=== PATIENT | male | born 1995 | race Caucasian/White ===

== ENCOUNTER 2021-04-18 01:24 | Emergency (ER) | payer OTHER ==
[~2021-04-18] VITALS: Ht 190.5 cm; Wt 96.4 kg
[2021-04-18 02:01] VITALS: BP_DIAS 63
--- OUTSIDE RECORDS SUMMARY | 2021-04-18 02:55 | CCD ---
Author Author [facility] Organization [facility] Address Unknown Phone Unavailable Care Team Providers Care Pension Adviser Name Role Phone NO, PCP Unavailable Unavailable CHANLIECCO, C UTE SLOAN Unavailable Unavailable CHANLIECCO, C UTE SLOAN Unavailable Unavailable CHANLIECCO, C UTE MD Unavailable Unavailable CHANLIECCO, C UTE MD Unavailable Unavailable CHANLIECCO, C UTE MD Unavailable Unavailable CHANLIECCO, C UTE MD Unavailable Unavailable CHANLIECCO, C UTE MD Unavailable Unavailable CHANLIECCO, C UTE MD Unavailable Unavailable CHANLIECCO, C UTE MD Unavailable Unavailable CHANLIECCO, C UTE MD Unavailable Unavailable CHANLIECCO, C UTE MD Unavailable Unavailable Re-disclosure Warning The records that you are about to access may contain information from federally-assisted alcohol or drug abuse programs. If such information is present, then the following federally mandated warning applies: This information has been disclosed to you from records protected by federal confidentiality rules (42 CFR part 2). The federal rules prohibit you from making any further disclosure of this information unless further disclosure is expressly permitted by the written consent of the person to whom it pertains or as otherwise permitted by 42 CFR part 2. A general authorization for the release of medical or other information is NOT sufficient for this purpose. The Federal rules restrict any use of the information to criminally investigate or prosecute any alcohol or drug abuse patient.The records that you are about to access may contain highly sensitive health information, the redisclosure of which is protected by Article 27-F of the [facility] Public Health law. If you continue you may have access to information: Regarding HIV / AIDS; Provided by facilities licensed or operated by the [facility] Office of Mental Health; or Provided by the [facility] Office for People With Developmental Disabilities. If such information is present, then the following [facility] mandated warning applies: This information has been disclosed to you from confidential records which are protected by state law. State law prohibits you from making any further disclosure of this information without the specific written consent of the person to whom it pertains, or as otherwise permitted by law. Any unauthorized further disclosure in violation of state law may result in a fine or intermediate sentence or both. A general authorization for the release of medical or other information is NOT sufficient authorization for further disc losure. Encounters Encounter Providers Location Date Indications Data Source(s ) Emergency Attender: UTE HORTA MDConsultant: PCP NO 02/18/2021 07:31:00 PM EDT - 02/18/2021 08:00:[address] [facility] Patient discharged. Immunizations Vaccine Date Status Description Data Source(s) COVID-19 VACCINE Pfizer 07/20/2020 12:00:00 AM EST completed [facility] Vaccine Series Complete: NOThis Data was Submitted to [facility] Via [employer]. Medications No Information Insurance Providers Payer name Policy type / Coverage type Policy ID Covered alliance party ID Covered alliance party's relationship to strauss Policy Strauss Plan Information [facility] [id number] SP [id number] [facility] [id number] 18 [id number] Problems, Conditions, and Diagnoses Code Display Name Description Problem Type Effective Dates Data Source(s) B43334 Other athletic field as the place of occ urrence of the external cause Other athletic field as the place of occurrence of the external cause Diagnosis 02/18/2021 07:31:[address] [facility] [id number] Fall on same level from slip ping, tripping and stumbling without subsequent striking against object, initial encounter Fall on same level from slipping, tripping and stumbling without subsequent striking against object, initial encounter Diagnosis 02/18/2021 07:31:[address] [facility] [id number] Nicotine dependence, other tobacco produ ct, uncomplicated Nicotine dependence, other tobacco product, uncomplicated Diagnosis 02/18 07:31:[address] [facility] [id number] Cellulitis of left lower limb Cellulitis of left lower limb Diagnosis 02/18/2021 07:31:[address] [facility] [id number] Abrasion, left ankle, initial encounter Abrasion, left ankle, initial encounter Diagnosis 02/18/2021 07:31:[address] [facility] [id number] Abrasion, left lower leg, initial encoun ter Abrasion, left lower leg, initial encounter Diagnosis 02/18/2021 07:31:[address] [facility] [id number] Unspecified injury of left lower leg, in itial encounter Unspecified injury of left lower leg, initial encounter Diagnosis 02/18/2021 07:31:[address] [facility] Surgeries/Procedures No Information Results ID Date Data Source [id number] 02/18/2021 07:31:[address] [facility] [address] [facility] Emergency Department [address] [place] [address] Phone #: ext- [phone] 02/18/2021 19:19 Patient: SERGIO OWENS Sex: M : 1995 Age: 25yWeight: 97.5 kgHeight/Length: 75 in.BMI: 26.9ALLERGIES: No Known Drug AllergyThe patient's Home Medications are listed below:NONE.The source(s) of the original Home Medication information:patientThe following Medications were given to the patient in the Emergency Department:None.The following Medications were prescribed to the patient:None. Name Value Range Interpretation Code Description Data Rosie rce(s) Supporting Document(s) ID Date Data Source [id number] 02/18/2021 07:31:[address] [facility] [address] [facility] Emergency Department [address] [place] [address] Phone #: ext- [phone] 10/2020 19:19 Patient: SERGIO OWENS Sex: M : 1995 Age: 25yWeight: 97.5 kgHeight/Length: 75 inBMI: 26.9ALLERGIES: No Known Drug AllergyDate/Time Medication Administered Medication Ordered Name Value Range Interpretation Code Description Data Rosie rce(s) Supporting Document(s) ID Date Data Source [id number] 02/18/2021 07:31:[address] [facility] [address] [facility] Emergency Department [address] [place] [address] Phone #: ext- [phone] 02/18/2021 19:19 Patient: SERGIO OWENS Sex: Karrie : 1995 Age: 25yMultiple superficial abrasions to the left lower leg and left ankle. Delayed evaluation. Cellulitis present. Noforeign body present.INSTRUCTIONS(Scrub in the shower twice daily and apply Bacitracin twice daily after showering.).Warnings: INFECTION: Watch for signs of infection (increasing heat and redness, pus-like drainage,swelling, or increased pain). Return or see your doctor if these signs occur.GENERAL WARNINGS: Return or contact your physician immediately if your condition worsens orchanges unexpectedly, if not improving as expected, or if other problems arise. Specifically return if pain orfever worsens.Your Current Medications: .No home medication.Follow-up:Follow up with your doctor Friday for wound check. Reason for referral: evaluation and treatment.Summary of care provided to patient.Understanding of the discharge instructions verbalized by patient. ADDITIONAL INFORMATIONAbrasionsAbrasions are skin scrapes. Their treatment depends on how large and deep the abrasion is.Home careYou may be prescribed an antibiotic cream or ointment to apply to the wound. This helps preventinfection. Follow instructions when using this medicine.General care To care for the abrasion, do the following each day for as long as directed by your healthcare provider: [address] [facility] Emergency Department [address] [place] [address] Phone #: ext- [phone] 02/18/2021 19:19 Patient: SERGIO OWENS Sex: M : 1995 Age: 25y o If you were given a bandage, change it once a day. If your bandage sticks to the wound, soak it in warm water until it loosens. o Wash the area with soap and warm water. You may do this in a sink or under a tub faucet or shower. Rinse off the soap. Then pat the area dry with a clean towel. o If antibiotic ointment or cream was prescribed, reapply it to the wound as directed. Cover the wound with a fresh nonstick bandage. If the b andage becomes wet or dirty, change it as soon as possible. o Some antibiotic ointments or cream can cause an allergic reaction or dermatitis. This may cause redness, itching and or hives. If this occurs, stop using the ointment right away and wash off any remaining ointment. You may need to take some allergy medicine to relieve symptoms. You may use acetaminophen or ibuprofen to control pain unless another pain medicine was prescribed. Talk with your healthcare provider before using these medicines if you have chronic liver or kidney disease or ever had a stomach ulcer or GI (gastrointestinal) bleeding. Don't use ibuprofen in children younger than 6 months old. Most skin wounds heal within 10 days. But an infection may occur even with treatment. So it's important to watch the wound for signs of infection as listed below.Follow-up careFollow up with your healthcare provider, or as advised.When to get medical adviceCall your healthcare provider right away if any of these occur: Fever of 100.4F (38C) or higher, or as directed by your healthcare provider Increasing pain, redness, swelling, or drainage from the wound Bleeding from the wound that does not stop after a few minutes of steady, firm pressure Decreased ability to move any body part near the wound [employer]. [address] [place] [address]. All rights reserved. This information is not intended as asubstitute for professional medical care. Always follow your healthcare professional's instructions.Wound Care [address] [facility] Emergency Department [address] [place] [address] Phone #: ext- [phone] 02/18/2021 19:19 Patient: SERGIO OWENS Sex: M : 1995 Age: 25yYou have a break in the skin. This wound may be because of an injury. Or it may be the result ofsurgery. Closing the wound helps stop bleeding, protects the wound from infection, and speedshealing. The type of closure that is used depends on the size and location of the wound. Choicesinclude stitches (sutures), strips of surgical tape, skin glue, or roberta.Home careYour healthcare provider may prescribe medicines for pain. Or he or she may suggestan dntf-exj-xjeobjl (OTC) pain reliever, such as ibuprofen. If you have chronic kidney disease, talkwith your provider before taking any OTC medicines. Also talk with your provider if you've had astomach ulcer or gastrointestinal bleeding. In certain cases, antibiotics may be prescribed to helpprevent infection. If antibiotics are prescribed, take them exactly as directed for as long as directed.Don't stop taking your antibiotics until they are all gone, even if you feel better.General care Follow the healthcare provider's instructions on how to care for the wound. Wash your hands with soap and warm water before and after caring for the wound. This helps prevent infection. If a bandage was applied, change it once a day or as directed. If at any time the bandage becomes wet or dirty, replace it with a new one. Unless told otherwise, avoid soaking the wound in water. Take showers or sponge baths instead of tub baths. Don't scrub or pick at the wound. Don't go swimming. If you have a bandage and it gets wet, use a clean cloth to gently pat the wound dry. Then replace the bandage with a dry one. [address] [facility] Emergency Department [address] [place] [address] Phone #: ext- [phone] 02/18/2021 19:19 Patient: SERGIO OWENS Sex: M : 1995 Age: 25y Don't scratch, rub, or pick at the area. Watch for the signs of infection listed below. Any wound can get infected, even if you are taking antibiotics. Seek care right away if you see any possible signs of infection.Care for specific closures Stitches. You may want to clean the wound daily after the first 2 to 3 days. To do this, remove the bandage and gently wash the area with soap and warm water. After cleaning, apply a thin layer of antibiotic ointment if recommended. Then apply a new bandage. Stitches es on the outside of the skin usually need to be removed by your healthcare provider. Surgical tape. Keep the area dry. If it gets wet, blot it dry with a towel. Surgical tape closures usually fall off within 7 to 10 days. If they have not fallen off after 10 days, you can remove them yourself. To remove the tape, use mineral oil or petroleum jelly on a cotton ball to gently rub the adhesive. Skin glue. You may shower or bathe as usual, but don't use soaps, lotions, or ointments on the wound area. Don't scrub the wound. After bathing, pat the wound dry with a soft towel. Don't apply liquids like peroxide, ointments, or creams to the wound while the strips or film is in place. Don't scratch, rub, or pick at the strips or film. Don't put tape directly over the strips or film. Skin adhesive film will fall off naturally in 5 to 10 days. If it does not peel off in 10 days, gently rub petroleum jelly or an ointment onto the film. Roberta. Take showers or sponge baths. Don't take tub baths. Don't use l otions on the wound area. The area may be cleaned with soap and water 2 to 3 days after the wound was stapled. Don't scrub the wound. Pat it dry with a clean soft cloth or towel. You can use antibiotic ointment if your provider tells you to. Roberta will need to be removed by your healthcare provider in 10 to 14 days.Follow-up careFollow up with your healthcare provider, or as directed. If you have stitches or roberta, return for theirremoval as directed.When to seek medical adviceCall your healthcare provider right away if you have signs of infection: Fever of 100.4F (38C) or higher, or as directed by your healthcare provider Increasing pain in the wound Increasing redness or swelling Pus or bad-smelling drainage from the wound [address] [facility] Emergency Department [address] [place] [address] Phone #: ext- [phone] 02/18/2021 19:19 Patient: SERGIO OWENS Sex: M : 1995 Age: 25yAlso call your provider right away if any of these occur: Wound bleeds more than a small amount or won't stop bleeding Wound edges come apart Numbness or weakness in the wound area that doesn't go away [phone] [employer]. [address] [place] [address]. All rights reserved. This information is not intended as asubstitute for professional medical care. Always follow your healthcare professional's instructions. You have been given the following additional information: Abrasions Wound Care(Electronically signed by GOOD Antony 02/18/2021 21:47) Name Value Range Interpretation Code Description Data Rosie rce(s) Supporting Document(s) ID Date Data Source [id number] 02/18/2021 07:31:[address] [facility] 1 Clinical Report - Nurses [facility] Emergency Department [address] [place] [address] Phone #: ext- [phone] 02/18/2021 19:19 Patient: SERGIO OWENS Sex: M : 1995 Age: 25yTRIAGEArrived by private vehicle. Historian: patient. Unaccompanied.Triage time: 19:21 02/18/2021. Acuity: LEVEL 3.Chief Complaint: LEFT LOWER EXTREMITY PAIN and SWELLING.Alert. No acute distress.Injury occurred. Onset. (6 days ago). ( Pt was playing sports for the [employer] and slid on his leg onFri/ this week. He has a large abrasion to his left lower leg. He was put on Doxycycline on Fri.It has since become worse.). He has had trouble walking.SEPSIS SCREEN: SIRS SCREEN NEGATIVE. SEPSIS SCREEN NEGATIVE. No suspected or confirmedsigns of infection present.ZAIN COMA SCORE: 15- eyes open- spontaneous (4); best verbal response- oriented (5); bestmotor response- obeys commands (6). --19:02/18/21 Pam Lopez R.N.19:02/18/21. BP: 146/84. MAP: 104. HR: 74. RR: 18. O2 saturation: 99% on room air. Temp: 98.3 F(temporal). Pain level now: 5/10. --19:25 02/18/21 Pam Lopez R.N.Weight: 97.5 kg stated. Height/Length: 75 inches Per Patient. BMI: 26.9. --19:02/18/21 Pam Lopez R.N.MedicationsNone. --19:02/18/21 Pam Lopez R.N.AllergiesNo Known Drug Allergy. --19:02/18/21 Pam Lopez R.N.PROBLEMS:no known problems.Medication/allergy information source: the patient. --19:02/18/21 Pam Lopez R.N.ADDITIONAL SURGERIES:Maycoldayday Segovia. --19:02/18/21 Pam Lopez R.N.HistoryPAST MEDICAL HX: Tetanus status: up-to-date.SOCIAL HX: Smoker- current status unknown (Vape). No alcohol use or drug use. He was offered HIV 2 Clinical Report - Nurses [facility] Emergency Department [address] [place] [address] Phone #: ext- [phone] 02/18/2021 19:19 Patient: SERGIO OWENS Sex: M : 1995 Age: 25y testing but declined. Patient education was provided. He was offered hepatitis C testing but declined. Patient education was provided. He has not traveled outside the [place] Infectious disease exposure: No infectious disease exposure. (COVID screen negative, pt was vaccinated for COVID). Patient is not a known carrier of tuberculosis, hepatitis, HIV, MRSA or VRE. Patient is not a known carrier of CRE. SELF HARM ASSESSMENT: Self harm assessment was performed. The patient answered "no" to the question(s) "Do you have thoughts of harming or killing yourself?", "Do you have a plan for harming or killing yourself?" and "Have you recently had thoughts about harming or killing others?". ABUSE ASSESSMENT: Abuse assessment. The patient had positive responses to the question(s) "Do you feel safe in your home?" (yes). Abuse denied. No suspicion of abuse. No report of abuse. NUTRITIONAL RISK ASSESSMENT: The nutritional risk assessment revealed no deficiencies. FUNCTIONAL ASSESSMENT: Functional assessment: no impairments noted. LEARNING NEEDS ASSESSMENT: The learning needs assessment revealed no barriers. FALL RISK ASSESSMENT: Fall risk assessment completed. No risk factors identified. SKIN INTEGRITY ASSESSMENT: Skin integrity risk assessment completed. No skin integrity risk identified. --02/18/21 Pam Lopez R.N. Interventions Identification band on patient. --:02/18/21 Pam Lopez R.N.PHYSICAL ASSESSMENTAmbulatory to room.GENERAL / NEURO / PSYCH: Oriented X 4. Alert. Appears in no acute distress.EXTREMITIES: Extremity pulses are within normal limits. Left leg: large abrasion of the anterior aspect ofmid leg. Left ankle: small abrasion.SKIN: Skin is warm and dry. --19:36 02/18/21 Roslyn Perdue R.N.NURSING PROGRESS NOTESPatient gowned. Reassurance given. Three patient identifiers checked. Call light placed in reach. Siderails up x 2. Bed placed in lowest position. Brakes of bed on. Patient ready for evaluation- PA notified.--:02/18/21 Pam Lopez R.N.DISPOSITION / DISCHARGE Condition at departure: improved and stable. No learning barriers present. Discharge inst ructions provided and reviewed with the patient. Reviewed wound care instructions. Patient verbalized understanding. Written instructions provided in Comoran. The patient was discharged by the physician commercial assistant. He was discharged home and accompanied by spouse. He left ambulatory and via private 3 Clinical Report - Nurses [facility] Emergency Department [address] [place] [address] Phone #: ext- [phone] 02/18/2021 19:19 Patient: SERGIO OWENS Sex: M : 1995 Age: 25y vehicle. Spouse driving. --19:59 02/18/21 Roslyn Perdue R.N. 19:58 02/18/21. BP: 118/72. MAP: 87. HR: 65. RR: 16. O2 saturation: 98%. Temp: 98.3 F. Pain level now: 10/23. --19:59 02/18/21 Roslyn Perdue R.N.Locked/Released at 02/18/2021 20:00 by Roslyn Perdue R.N. Name Value Range Interpretation Code Description Data Rosie rce(s) Supporting Document(s) ID Date Data Source [id number] 02/18/2021 07:31:[address] [facility] 1 Clinical Report - Physicians/Mid Levels [facility] Emergency Department [address] [place] [address] Phone #: ext- [phone] 02/18/2021 19:19 Patient: SERGIO OWENS Sex: M : 1995 Age: 25y Time Seen: 19:25 02/18/2021. Arrived- By private vehicle.HISTORY OF PRESENT ILLNESS Chief Complaint: Injury to left leg. The injury happened 6 days ago. Occurred at an athletic field. ( Pt was playing sports for the [employer] and slid on his leg on Fri/ this week. He has a large abrasion to his left lower leg. He was put on Doxycycline on Fri. It has since become worse.). He has had trouble walking.). Fell: Patient is experiencing severe pain.REVIEW OF SYSTEMSThe patient complains of pain on weight bearing. No swelling, tingling, weakness, numbness or suspectedforeign body. No skin laceration.PAST HISTORYTetanus immunization status is up-to-date. Problems: no known problems. Additional Surgeries: Maycol Segovia. Medications: None. Allergies: No Known Drug Allergy.SOCIAL HISTORYSmoker- current status unknown (Vape). No alcohol use or drug use.PHYSICAL EXAMVital Signs: Have been reviewed as abnormal. Oxygen saturation normal.Appearance: Alert. Oriented X3. No acute distress.Head: Head atraumatic.Eyes: Pupils equal, round and reactive to light. Eyes normal inspection.ENT: Ears normal. Nose normal. Pharynx normal.Neck: Normal inspection. 2 Clinical Report - Physicians/Mid Levels [facility] Emergency Department [address] [place] [address] Phone #: ext- [phone] 02/18/2021 19:19 Patient: SERGIO OWENS Sex: M : 1995 Age: 25y CVS: Normal heart rate and rhythm. Respiratory: No respiratory distress. Abdomen: No visible injury. Back: Normal inspection. Skin: Skin warm and dry. Normal skin color. Normal skin turgor. Extremities: Swelling, warmth, tenderness, erythema and serous drainage present in the left leg and left ankle. Left leg: mild erythema and swelling, moderate tenderness and large abrasion with controlled bleeding located in the anterior and lateral aspect of mid and lower leg. Limited weight bearing secondary to pain. Neurovascular intact distally. Left ankle: mild erythema, tenderness and swelling and small abrasion with controlled bleeding localized to the lateral malleolus. Limited ROM secondary to pain. Neurovascular intact distally. No ligamentous laxity present. No joint effusion. Extremities otherwise negative. Neuro, Vascular and Tendons: Vascular status intact. Sensation intact. Motor intact. Tendon function intact. Gait: Limping gait. Neuro: Oriented X 3.PROGRESS AND PROCEDURESCourse of Care: 19:51 Feb 18 2021. Evaluation after observation. (Discussed exam findings, reviewedpic from earlier in the week, exam c/w eschar normal healing and approp riate abx tx, wound carediscussed and pt is agreeable with dx and tx plan.). Patient counseled in person regarding the patient's stable condition, diagnosis and need for follow-up. Patient agrees with plan of care. :Feb 18 2021. Disposition: Discharged home in good and improved condition (:52 Feb 18 2021).CLINICAL IMPRESSION Multiple superficial abrasions to the left lower leg and left ankle. Delayed evaluation. Cellulitis present. No foreign body present.INSTRUCTIONS (Scrub in the shower twice daily and apply Bacitracin twice daily after showering.). Warnings: INFECTION: Watch for signs of infection (increasing heat and redness, pus-like drainage, swelling, or increased pain). Return or see your doctor if these signs occur. GENERAL WARNINGS: Return or contact your physician immediately if your condition worsens or changes unexpectedly, if not improving as expected, or if other problems arise. Specifically return if pain or fever worsens. 3 Clinical Report - Physicians/Mid Levels [facility] Emergency Department [address] [place] [address] Phone #: ext- [phone] 02/18/2021 19:19 Patient: SERGIO OWENS Sex: M : 1995 Age: 25y Your Current Medications: . No home medication. Follow-up: Follow up with your doctor Friday for wound check. Reason for referral: evaluation and treatment. Summary of care provided to patient. Understanding of the discharge instructions verbalized by patient.(Electronically signed by GOOD Antony 02/18/2021 21:47) Name Value Range Interpretation Code Description Data Rosie rce(s) Supporting Document(s) Procedure Social History No Information
[2021-04-18 05:11] VITALS: BP_SYST 112
== END 2021-04-18 05:12 | disposition home or self-care (01) ==
LOC: M ED 01:24
DX: E86.0 Dehydration (principal); R26.2 Difficulty in walking, not elsewhere classified; X31.XXXA Exposure to excessive natural cold, initial encounter; Y92.89 Other specified places as the place of occurrence of the external cause; Y93.9 Activity, unspecified; Y99.9 Unspecified external cause status

== ENCOUNTER → 2023-12-05 | Outpatient (CLI) | payer OTHER | LOC: M OUTALCOH 08:06 | PROVIDERS: ATTEND Psychiatry & Neurology Psychiatry | DX: F10.10 Alcohol abuse, uncomplicated (principal); F17.200 Nicotine dependence, unspecified, uncomplicated ==

== ENCOUNTER 2024-01-12 10:55 | Outpatient (RCR) | payer OTHER | END 2024-01-14 | LOC: M OUTALCOH 10:55 | PROVIDERS: ATTEND Psychiatry & Neurology Psychiatry | DX: F10.10 Alcohol abuse, uncomplicated (principal); F17.200 Nicotine dependence, unspecified, uncomplicated ==

== ENCOUNTER 2024-02-12 14:54 | Outpatient (RCR) | payer OTHER | END 2024-02-14 | LOC: M OUTALCOH 14:54 | PROVIDERS: ATTEND Psychiatry & Neurology Psychiatry | DX: F10.10 Alcohol abuse, uncomplicated (principal); F17.200 Nicotine dependence, unspecified, uncomplicated ==

== ENCOUNTER 2024-03-04 07:55 | Outpatient (RCR) | payer OTHER | END 2024-03-15 | LOC: M OUTALCOH 07:55 | PROVIDERS: ATTEND Psychiatry & Neurology Psychiatry | DX: F10.10 Alcohol abuse, uncomplicated (principal); F17.200 Nicotine dependence, unspecified, uncomplicated ==

== ENCOUNTER 2024-03-16 10:55 | Outpatient (RCR) | payer OTHER | END 2024-04-15 | LOC: M OUTALCOH 10:55 | PROVIDERS: ATTEND Psychiatry & Neurology Psychiatry | DX: F10.10 Alcohol abuse, uncomplicated (principal); F17.200 Nicotine dependence, unspecified, uncomplicated ==

== ENCOUNTER 2025-03-19 09:57 | Emergency (ER) | payer OTHER ==
[~2025-03-19] VITALS: Ht 188 cm; Wt 120.9 kg
[2025-03-19 10:24] LABS: BASO # 0.1 10^3/uL (0.0-0.2); BASO % 0.6 % (0.0-1.0); EOS # 0.0 10^3/uL (0.0-0.5); EOS % 0.4 % (0.0-3.0); LYMPH # 2.3 10^3/uL (1.5-5.0); LYMPH % 23.8 % (24.0-44.0); MONO # 0.7 10^3/uL (0.0-0.8); MONO % 6.9 % (2.0-8.0); NEUTROPHILS # 6.7 10^3/uL (1.5-8.5); NEUTROPHILS % 68.1 % (36.0-66.0); PLATELET COUNT, AUTOMATED 258 10^3/uL (150-450)
[2025-03-19] MEDS: NS (Normal Saline) 0.9% 1,000 ML IV ONE (10:39)
[2025-03-19 10:53] LABS: CK-MB VALUE MASS 1.9 NG/ML (<3.6)
[2025-03-19 10:55] LABS: ALT/SGPT 74 U/L (7.0-40); AST/SGOT 39 U/L (<34); CALCIUM LEVEL 8.9 MG/DL (8.5-10.1); CARBON DIOXIDE LEVEL 24 MMOL/L (20-31); CHLORIDE LEVEL 105 MMOL/L (98-107); CREATININE FOR GFR 0.89 MG/DL (0.70-1.30); GLOMERULAR FILTRATION RATE > 90.0 (>60); POTASSIUM SERUM 4.3 MMOL/L (3.5-5.1); SODIUM LEVEL 141 MMOL/L (136-145)
[2025-03-19 10:56] LABS: CPK CREATINE PHOSPHOKINASE 159 U/L (46-171); MB/CK RELATIVE INDEX 1.19 (< OR =4)
[2025-03-19] MEDS ORDERED: ISOVUE-370 76% 100 ML VIAL As Ordered ONE (11:10)
[2025-03-19 11:44] LABS: CK-MB VALUE MASS 1.5 NG/ML (<3.6)
[2025-03-19 11:53] LABS: CPK CREATINE PHOSPHOKINASE 147 U/L (46-171); MB/CK RELATIVE INDEX 1.02 (< OR =4)
[2025-03-19 13:15] VITALS: BP 127/72; TEMP 97.9; O2SAT 96
== END 2025-03-19 13:26 | disposition home or self-care (01) ==
LOC: M ED 09:57
DX: R07.9 Chest pain, unspecified (principal); F14.10 Cocaine abuse, uncomplicated; R00.0 Tachycardia, unspecified
CPT/HCPCS: 71045; 71275; 80048; 80076; 82550; 82553; 83690; 84484; 85025; 93005; 93041; 94760; 96361; 96374; 99285; J2060; Q9967